=== PATIENT | male | born 1935 | race Caucasian/White ===

== ENCOUNTER → 2018-02-15 | Outpatient (REF) | payer MEDICARE ==
[2018-02-15 13:21] LABS: URIC ACID 6.8 MG/DL (3.5-7.2)
== END ==
LOC: M LAB REF 11:56
DX: M10.9 Gout, unspecified (principal)
CPT/HCPCS: 84550

== ENCOUNTER → 2018-07-12 | Outpatient (REF) | payer MEDICARE ==
[2018-07-14 16:17] LABS: Lyme Disease IgG/IgM Antibodie <0.91 ISR (0.00-0.90); Lyme Disease IgM Ab Quantitati <0.80 index (0.00-0.79)
== END ==
LOC: M LAB REF 16:57
DX: R53.83 Other fatigue (principal)
CPT/HCPCS: 86617

== ENCOUNTER → 2018-08-28 | Outpatient (REF) | payer MEDICARE ==
[2018-08-28 12:35] LABS: URIC ACID 6.5 MG/DL (3.5-7.2)
== END ==
LOC: M LAB REF 11:51
DX: M10.9 Gout, unspecified (principal)
CPT/HCPCS: 84550

== ENCOUNTER → 2019-01-24 | Outpatient (CLI) | payer MEDICARE ==
--- NOTE | 2019-01-24 15:34 | REP ---
Chest two views HISTORY: Shortness of breath Comparison: 05/11/2010 There is elevation of the left hemidiaphragm. A calcified granuloma is present in the right lower lobe. The left lung is clear. The heart is normal in size. The pulmonary vasculature is normal in appearance. The bony structure is intact. IMPRESSION: No acute disease. Electronically Signed by Tyler Frank MD 01/24/2019 03:26 P
== END ==
LOC: M WUC 14:43
PROVIDERS: ATTEND Family Medicine
DX: R06.02 Shortness of breath (principal)

== ENCOUNTER → 2019-01-25 | Outpatient (REF) | payer MEDICARE | LOC: M LAB REF 14:59 | PROVIDERS: ATTEND Family Medicine | DX: R06.02 Shortness of breath (principal) ==

== ENCOUNTER → 2019-03-04 | Outpatient (REF) | payer MEDICARE ==
[2019-03-04 13:42] LABS: BLOOD UREA NITROGEN 17 MG/DL (7-18); CREATININE FOR GFR 1.06 MG/DL (0.70-1.30); GLOMERULAR FILTRATION RATE > 60.0 (>35)
== END ==
LOC: M LAB REF 12:54
PROVIDERS: ATTEND Internal Medicine Pulmonary Disease
DX: J98.6 Disorders of diaphragm (principal)

== ENCOUNTER → 2019-03-08 | Outpatient (CLI) | payer MEDICARE ==
[~2019-03-08] MED LIST: ISOVUE-370 76% 100ML VIAL (Q9967) As Ordered ONE
--- NOTE | 2019-03-08 15:56 | REP ---
CT CHEST WITH IV CONTRAST: CT chest performed with IV contrast. Sagittal and coronal reconstruction images are performed. Comparison is made with prior CT abdomen 03/20/2012. There is mild elevation of the left hemidiaphragm. There is bibasilar fibroatelectatic change. These findings are similar to the prior CT of the abdomen. Calcified granuloma is seen in the right upper lobe posteriorly. There is a calcified granuloma in the lingular segment of the left upper lobe. Calcified hilar lymph nodes are seen bilaterally. There is no significant mediastinal, hilar or chest wall lymphadenopathy. Heart is normal in size. There is no pleural or pericardial effusion. In the visualized upper abdomen there are calcified granulomas in the spleen. There is a left adrenal adenoma, which is unchanged since the prior CT abdomen measuring 1.5 cm in diameter. There are degenerative changes of the spine. IMPRESSION: Chronic bibasilar fibroatelectatic change with mild elevation of the left hemidiaphragm appearing unchanged compared to the prior CT abdomen 03/20/2012. There is a calcified granuloma in the lingular segment of left upper lobe and in the right upper lobe with calcified hilar lymph nodes bilaterally. No other significant findings in the chest. Stable left adrenal adenoma. Electronically Signed by Mg Dowling MD 03/08/2019 07:36 P
--- NOTE | 2019-03-08 16:02 | REP ---
CHEST FLUORO SNIFF TEST: Fluoroscopy was performed to observe diaphragmatic excursion during breathing. The left hemidiaphragm is mildly elevated. This is seen compared back to prior studies, the earliest 07/13/2007. There is appropriate diaphragmatic excursion with inspiration and expiration. Both the right and left hemidiaphragms demonstrate appropriate symmetrical superior and inferior motion with expiration and inspiration respectively. There is no evidence of diaphragmatic paralysis or asynchronous motion. 0.8 minutes fluoroscopy time utilized. Electronically Signed by Mg Dowling MD 03/08/2019 07:37 P
== END ==
LOC: M RAD 14:18
PROVIDERS: ATTEND Internal Medicine Pulmonary Disease
DX: J98.6 Disorders of diaphragm (principal); R91.8 Other nonspecific abnormal finding of lung field
CPT/HCPCS: 71260; 76000; Q9967

== ENCOUNTER → 2019-04-26 | Outpatient (REF) | payer MEDICARE ==
[2019-04-26 13:52] LABS: BLOOD UREA NITROGEN 19 MG/DL (7-18); CREATININE FOR GFR 1.17 MG/DL (0.70-1.30); GLOMERULAR FILTRATION RATE > 60.0 (>35)
== END ==
LOC: M LABNEURO 10:23
PROVIDERS: ATTEND Psychiatry & Neurology Neurology
DX: I10 Essential (primary) hypertension (principal)

== ENCOUNTER → 2019-07-30 | Outpatient (CLI) | payer MEDICARE ==
--- NOTE | 2019-07-30 18:32 | REP ---
PA and lateral chest: Comparison is a PA and lateral chest of 01/24/[address] of 03/08/2019. There is a nodule peripherally in the right lung, corresponding to a calcified granuloma on the chest CT, and unchanged from the prior plain film study. There is elevation of the left hemidiaphragm. This is unchanged. Lung ge otherwise clear. Cardiac size is normal. The merly, mediastinum, skeletal structures are unremarkable on plain films. On the comparison CT there are calcified granulomas in the merly bilaterally. Impression: Chronic elevation of the left hemidiaphragm. Calcified granulomas as described. Electronically Signed by Mg Poe MD 07/30/2019 06:23 P
== END ==
LOC: M RAD 15:02
PROVIDERS: ATTEND Internal Medicine Pulmonary Disease
DX: J98.6 Disorders of diaphragm (principal); R91.1 Solitary pulmonary nodule; R91.8 Other nonspecific abnormal finding of lung field

== ENCOUNTER → 2020-01-29 | Outpatient (REF) | payer MEDICARE | LOC: M LAB REF 08:57 | PROVIDERS: ATTEND Dermatology | DX: C44.612 Basal cell carcinoma of skin of right upper limb, including shoulder (principal); L57.0 Actinic keratosis ==

== ENCOUNTER → 2020-01-30 | Outpatient (REF) | payer MEDICARE | LOC: M LAB REF 08:14 | PROVIDERS: ATTEND Dermatology | DX: L72.0 Epidermal cyst (principal) ==

== ENCOUNTER → 2020-03-09 | Outpatient (CLI) | payer MEDICARE ==
--- NOTE | 2020-03-09 18:28 | REP ---
SNIFF TEST The procedure was performed under the direct supervision of Dr. Hart. The images were reviewed with Dr. Hart. There is elevation of the left hemidiaphragm. The diaphragms move in the normal direction with no evidence of paradoxical motion. Impression: There is elevation of the left hemidiaphragm. The diaphragms move in the normal direction but no evidence of paradoxical motion. 0.2 minutes of fluoroscopy time was utilized for this procedure. Electronically Signed by MONICA Joe 03/09/2020 03:34 P Electronically Signed by Sam Hart MD 03/09/2020 06:19 P
== END ==
LOC: M RAD 10:33
PROVIDERS: ATTEND Internal Medicine Pulmonary Disease
DX: J98.6 Disorders of diaphragm (principal)

== ENCOUNTER → 2020-03-20 | Outpatient (CLI) | payer MEDICARE ==
[~2020-03-20] MED LIST changes: +ALLO100T PO; +ALPR0.5T3 PO; +ESCI20TA PO; +GABA-1171 PO; -ISOVUE-370 76% 100ML VIAL (Q9967) As Ordered ONE
[2020-03-20 18:00] LABS: COLLAGEN EPINEPHRINE 114 SECONDS (74-162)
[2020-03-20 18:02] LABS: PLATELET COUNT, AUTOMATED 258 10^3/uL (150-450)
[2020-03-20 18:21] LABS: PROTHROMBIN TIME 12.9 SECONDS (11.8-14.0)
[2020-03-20 18:22] LABS: PARTIAL THROMBOPLASTIN TIME 33.2 SECONDS (25.0-38.4)
== END ==
LOC: M PLALAB 14:23
PROVIDERS: ATTEND Physical Medicine & Rehabilitation
DX: M47.22 Other spondylosis with radiculopathy, cervical region (principal); Z79.899 Other long term (current) drug therapy

== ENCOUNTER → 2020-04-04 | Outpatient (CLI) | payer MEDICARE | LOC: M LABSMTC 09:28 | PROVIDERS: ATTEND Anesthesiology | DX: Z01.818 Encounter for other preprocedural examination (principal); Z11.59 Encounter for screening for other viral diseases | CPT/HCPCS: C9803; U0003 ==

== ENCOUNTER → 2020-07-01 | Outpatient (REF) | payer MEDICARE | LOC: M LAB REF 14:06 | PROVIDERS: ATTEND Dermatology | DX: D04.5 Carcinoma in situ of skin of trunk (principal); L57.0 Actinic keratosis; L57.8 Other skin changes due to chronic exposure to nonionizing radiation ==

== ENCOUNTER 2020-07-02 10:38 | Day surgery (SDC) | payer MEDICARE ==
[~2020-07-02] VITALS: Ht 167.6 cm; Wt 98.4 kg
[~2020-07-02 10:38] MED LIST changes: +NS 1,000 ML IV ONE
[2020-07-02] MEDS ORDERED: LIDOCAINE 2% MDV 20ML VIAL As Ordered ONE (12:47)
[2020-07-02] MEDS ORDERED: propofoL 500 MG/50 ML VIAL As Ordered ONE (12:47)
--- NOTE | 2020-07-02 13:02 | ROOR ---
Patient Name: Tyler Priest Procedure Date: 07/02/2020 12:38 PM Date of : 1935 Age: 85 Room: [facility] Gender: Male Note Status: Finalized Procedure: Colonoscopy Indications: High risk colon cancer surveillance: Personal history of colonic polyps Providers: Juan Brock Jr, MD Referring MD: Joe Mcwilliams MD Requesting Provider: Medicines: Propofol per Anesthesia Complications: No immediate complications. Procedure: Pre-Anesthesia Assessment: - Prior to the procedure, a History and Physical was performed, and patient medications and allergies were reviewed. The patient is competent. The risks and benefits of the procedure and the sedation options and risks were discussed with the patient. All questions were answered and informed consent was obtained. Patient identification and proposed procedure were verified by the physician and the nurse in the pre-procedure area and in the procedure room. Mental Status Examination: alert and oriented. Airway Examination: normal oropharyngeal airway and neck mobility. Respiratory Examination: clear to auscultation. CV Examination: normal. ASA Grade Assessment: II - A patient with mild systemic disease. After reviewing the risks and benefits, the patient was deemed in satisfactory condition to undergo the procedure. The anesthesia plan was to use moderate sedation / analgesia (conscious sedation). Immediately prior to administration of medications, the patient was re-assessed for adequacy to receive sedatives. The heart rate, respiratory rate, oxygen saturations, blood pressure, adequacy of pulmonary ventilation, and response to care were monitored throughout the procedure. The physical status of the patient was re-assessed after the procedure. The Colonoscope was introduced through the anus and advanced to the cecum, identified by appendiceal orifice and ileocecal valve. The colonoscopy was performed without difficulty. The patient tolerated the procedure well. The quality of the bowel preparation was adequate. Findings: A medium polyp was found in the ascending colon. The polyp was semi-pedunculated. The polyp was removed with a hot snare. Resection and retrieval were complete. A diminutive polyp was found in the rectum. The polyp was hyperplastic. The polyp was removed with a hot snare. Resection was complete, but the polyp tissue was not retrieved. The recto-sigmoid colon, sigmoid colon, descending colon, transverse colon, cecum, appendiceal orifice and ileocecal valve appeared normal. Impression: - One medium polyp in the ascending colon, removed with a hot snare. Resected and retrieved. - One diminutive polyp in the rectum, removed with a hot snare. Complete resection. Polyp tissue not retrieved. - The recto-sigmoid colon, sigmoid colon, descending colon, transverse colon, cecum, appendiceal orifice and ileocecal valve are normal. Recommendation: - Discharge patient to home (ambulatory). - Repeat colonoscopy in 3 - 5 years for surveillance. Juan Brock MD Juan Brock Jr, MD 07/02/2020 1:01:49 PM Electronically signed by Juan Brock Jr, MD Number of Addenda: 0 Note Initiated On: 07/02/2020 12:38 PM Estimated Blood Loss: Estimated blood loss: none.
[2020-07-02 13:25] VITALS: BP 155/98
== END 2020-07-02 13:33 | disposition home or self-care (01) ==
LOC: M OPP 10:38
PROVIDERS: ATTEND Surgery
DX: Z12.11 Encounter for screening for malignant neoplasm of colon (principal); Z86.010 Personal history of colon polyps; K63.5 Polyp of colon; M10.9 Gout, unspecified; M19.90 Unspecified osteoarthritis, unspecified site; F41.9 Anxiety disorder, unspecified; Z79.899 Other long term (current) drug therapy

== ENCOUNTER → 2020-08-11 | Outpatient (REF) | payer MEDICARE ==
[~2020-08-11] MED LIST changes: -NS 1,000 ML IV ONE
[2020-08-13 16:11] LABS: Lyme Disease IgG/IgM Antibodie <0.91 ISR (0.00-0.90); Lyme Disease IgM Ab Quantitati <0.80 index (0.00-0.79)
== END ==
LOC: M LAB REF 16:16
PROVIDERS: ATTEND Family Medicine
DX: S40.861A Insect bite (nonvenomous) of right upper arm, initial encounter (principal); X58.XXXA Exposure to other specified factors, initial encounter; Y92.9 Unspecified place or not applicable